=== PATIENT | male | born 1970 | race Caucasian/White ===

== ENCOUNTER → 2017-10-03 | Outpatient (CLI) | payer OTHER ==
[~2017-10-03] MED LIST: CELEXA40 MG PO; HYDROCODON-ACE1 EAC8 PO; RELAFEN750 MG PO
== END ==
LOC: RAD 08:55
DX: S82.62XA Displaced fracture of lateral malleolus of left fibula, initial encounter for closed fracture (principal); S99.922A Unspecified injury of left foot, initial encounter; S82.392A Other fracture of lower end of left tibia, initial encounter for closed fracture; X58.XXXA Exposure to other specified factors, initial encounter; Y93.89 Activity, other specified; Y92.89 Other specified places as the place of occurrence of the external cause; Y99.8 Other external cause status